=== PATIENT | male | born 1995 | race African-American/Black ===

== ENCOUNTER 2018-09-06 12:52 | Emergency (ER) | payer BC | END 2018-09-06 13:45 | disposition home or self-care (01) | LOC: JERFT 12:52 ==

== ENCOUNTER 2018-09-15 16:49 | Emergency (ER) | payer BC ==
--- NOTE | 2018-09-15 17:12 | PDOC ---
Rapid Medical Evaluation Time Seen by Provider: 09/15/18 17:10 Medical Evaluation: Allergies Allergy/AdvReac Type Severity Reaction Status Date / Time No Known Allergies Allergy Verified 09/15/18 17:09 09/15/18 17:10 Pt presents for suture removal to the R chin. Stitches placed here on 09/06/17. Exam: sutures in place to the R chin. Orders: nothing Pt to proceed to the ER for further evaluation Discharge Disposition - Diagnosis Visit for suture removal - Referrals - Patient Instructions - Post Discharge Activity
[2018-09-15 17:15] VITALS: BP 102/43; PULSE 65; TEMP 97.8; BMI 29.6
--- NOTE | 2018-09-15 17:30 | PDOC ---
Suture Removal/Wound Check HPI - History of Present Illness Chief Complaint: Suture/Staple Removal(Here) Stated Complaint: TO BE SEEN Time Seen by Provider: 09/15/18 17:10 History Source: Yes: Patient - Previous ED Treatment Type of procedure performed on last visit: Yes: Laceration Repair Tetanus Immunization: Yes: Up to Date Past History - Travel Traveled outside of the country in the last 30 days: No - Past Medical History Allergies/Adverse Reactions: Allergies Allergy/AdvReac Type Severity Reaction Status Date / Time No Known Allergies Allergy Verified 09/15/18 17:09 Asthma: Yes COPD: No - Immunization History Immunization Up to Date: No - Suicide/Smoking/Psychosocial Hx Smoking History: Former smoker Have you smoked in the past 12 months: No Information on smoking cessation initiated: No Hx Alcohol Use: No Drug/Substance Use Hx: No Suture Removal/Wound Check PE - Physical Exam Location of Laceration/Wound: bilateral: Face (chin) *Review of Systems - Review of Systems Constitutional: No: Chills, Fever Integumentary: No: Erythema, Pruritus, Rash, Sweating *Physical Exam - Vital Signs Last Vital Signs Temp Pulse Resp BP Pulse Ox 97.8 F 65 16 102/43 L 100 09/15/18 17:10 09/15/18 17:10 09/15/18 17:10 09/15/18 17:10 09/15/18 17:10 - Physical Exam General Appearance: Yes: Nourished Integumentary: positive: Normal Color, Other (healing chin laceration with 2 stitches, no erythema or warmth ) 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, Fully Oriented, Alert, Normal Mood/ Affect, Normal Response, Motor Strength 5/5 Medical Decision Making - Medical Decision Making 23y/o M s/o chin laceration requiring sutures a week ago for suture removal,pt has no complaints 2 sutures removed with ease pt report 3 was placed but one fell off wound was well approximated and healing *DC/Admit/Observation/Transfer Diagnosis at time of Disposition: Visit for suture removal - Discharge Dispostion Disposition: HOME Condition at time of disposition: Stable Decision to Admit order: No - Referrals - Patient Instructions Printed Discharge Instructions: DI for Suture Removal Additional Instructions: Keep area dry Do not scratch Follow up with your primary care doctor Return to the ER if worsening symptoms occurs - Post Discharge Activity
== END 2018-09-15 17:58 | disposition home or self-care (01) ==
LOC: JERFT 16:49
DX: Z48.02 Encounter for removal of sutures (principal)
CPT/HCPCS: 99281-25